=== PATIENT | female | born 1970 | race Caucasian/White ===

== ENCOUNTER 2021-10-30 04:20 | Emergency (ER) | payer MEDICARE, MEDICAID, SELFPAY ==
--- NOTE | ~2021-10-30 | CT_ITS ---
EXAMINATION: CT HEAD WITHOUT CONTRAST CLINICAL INFORMATION: Head injury COMPARISON: None. TECHNIQUE: Contiguous axial imaging was performed from the skull base to vertex without intravenous contrast. This CT examination was performed using dose optimization techniques as appropriate, variously including the following: * Automated exposure control * Adjustment of mA and/or kV according to patient size (this includes techniques or standardized protocols for targeted exams where dose is matched to indication/reason for exam; i.e. extremities or head) Use of iterative reconstruction technique DLP: 673 mGy-cm. FINDINGS: There is no evidence of acute intracranial hemorrhage or territorial infarction. No abnormal mass effect or midline shift is seen. Weinstein to white matter differentiation is well preserved. No extra-axial fluid collections are identified. No hydrocephalus. No significant volume loss. There is no abnormal attenuation within the brain parenchyma. Multiple areas of soft tissue swelling, greatest in the left frontal region. Right parieto-occipital subgaleal hematoma with overlying skin mohsen. No calvarial fracture. The mastoid air cells and visualized portions of the paranasal sinuses are well aerated. CT/CT head/brain wo con IMPRESSION: No acute intracranial pathology.
[2021-10-30 05:03] VITALS: BP 119/72; BP 125/67; PULSE 69; PULSE 72; RESP 16; TEMP 36.5; O2SAT 97; O2SAT 98; BMI 21.2
--- NOTE | 2021-10-30 05:04 | ED.HEATRA ---
HPI - Head Injury General Chief complaint: Fall Stated complaint: SLIP/FALL IN SHOWER,HEAD HASH,ON THINNERS PER EMS Time Seen by Provider: 10/30/21 04:33 History of Present Illness HPI Narrative: Patient is a 51-year-old female status post slip and fall hitting the back of her head. Has a history of coronary artery disease. Status post stent. Currently is on Brilinta. No loss of consciousness. Positive nausea after the incident. Patient from home. No neck pain. No focal weakness. No chest pain. Patient is unsure of her tetanus status. Related Data Allergies Allergy/AdvReac Type Severity Reaction Status Date / Time seafood Allergy Mild Rash Verified 10/30/21 04:34 Review of Systems Review of Systems: No coughing or congestion or upper respiratory symptoms. Yes all other systems are reviewed and are negative [facility] Past Medical History Attestation statement: The following information was validated with the patient. Physical Exam Vital Signs: Vital Signs: Last Vital Signs Temp 97.7 F 10/30/21 05:03 Pulse 69 10/30/21 05:03 Resp 18 10/30/21 05:47 BP 125/67 10/30/21 05:03 Pulse Ox 97 10/30/21 05:03 O2 Del Method 10/30/21 05:03 BMI result Body Mass Index 21.2 Appearance: Alert. Oriented X3. No acute distress. Eyes: Pupils equal, round and reactive to light. ENT: Pharynx normal. Neck: Normal inspection. Neck supple. No lymph nodes noted. No crepitus CVS: Normal heart rate and rhythm. Pulses normal. Normal S1 and S2 Respiratory: No respiratory distress. Breath sounds normal. No Wheezing. No rales Abdomen: Soft and nontender. No rigidity. No distention. good BS x4 Skin: Skin warm and dry. Normal skin color. Normal skin turgor. 4 cm laceration to the occipital area of the scalp. Positive blood. Explored to full depth down to subcutaneous tissue. Extremities: No lower extremity edema. Neurovascular intact to all extremities. No Lacerations. No Rash Neuro: Oriented X 3. No motor deficit. No sensory deficit. Moving all extermities. No slurred speech MDM - Head Injury MDM Narrative Medical decision making narrative: Patient's bleeding clean with peroxide and normal saline. A large 4 cm laceration is noted to the occipital area. There was cleaned copiously. The full depth was explored. Subsequently closed with mohsen. Bleeding was controlled. Given the history of being on Brilinta. Positive nausea. Will get CT scan of the head. No neck pain. Neurologically intact. Patient claims the fall was completely mechanical. She was trying to go to the bathroom when she slipped. Medical Records Attestation: I reviewed the patient's medical records. Lab Data Attestation: I reviewed the patient's lab results. Procedures Laceration Scalp: Site: scalp Size (cm): 4 Description: linear Depth: simple, single layer Amount of anesthesia used (mL): 5 Pre-repair: wound explored and irrigated extensively Skin layer closed with: other (6 mohsen.) Discharge Plan Discharge Clinical Impression: Head injury, Laceration of scalp Patient Disposition: Home, Self-Care Instructions: Laceration (ED), Head Injury (ED) Additional Instructions: Staple removal in 5-7 days. Referrals: [facility] [Physician] - (Staple removal in 1 week with your own doctor or in the emergency department. Head injury precautions.)
[2021-10-30] MEDS: Diphth,Pertus(ACell),Tet Adult 0.5 ML SYRINGE IM (05:13)
[2021-10-30 05:47] VITALS: RESP 18
[2021-10-30] MEDS: HYDROmorphone HCl 0.5 MG/0.5 ML SYRINGE IVPUSH (05:47)
[2021-10-30] MEDS: ondansetron HCL 4 MG/2 ML VIAL IVPUSH (05:47)
== END 2021-10-30 06:55 | disposition home or self-care (01) ==
PROVIDERS: Emergency Provider Emergency Medicine Emergency Medical Services
DX: S00.91XA Abrasion of unspecified part of head, initial encounter (principal); R51.9 Headache, unspecified; W01.10XA Fall on same level from slipping, tripping and stumbling with subsequent striking against unspecified object, initial encounter; Y93.9 Activity, unspecified; Y92.9 Unspecified place or not applicable; Y99.9 Unspecified external cause status; Z79.899 Other long term (current) drug therapy
CPT/HCPCS: 12002; 70450; 90471; 90715; 96374; 96375; 99282; 99284; J1170; J2405

== ENCOUNTER 2021-11-06 14:45 | Emergency (ER) | payer MEDICARE, MEDICAID, SELFPAY ==
[2021-11-06 15:04] VITALS: BP 135/73; PULSE 64; RESP 16; TEMP 36.7; O2SAT 98; BMI 25.4
--- NOTE | 2021-11-06 15:46 | ED.GENADULT ---
HPI - General Adult General Chief complaint: General Medical Stated complaint: Staple removal Time Seen by Provider: 11/06/21 15:34 Source: patient Mode of arrival: ambulatory Limitations: no limitations History of Present Illness HPI narrative: 51-year-old female presenting to the emergency department requesting staple removal, patient head is 6 mohsen placed her head about a week ago. Patient denies any fevers, chills, numbness or tingling. She is concerned about a dry area on her scalp that has been going on for about a week. Denies fevers or chills. Related Data Allergies Allergy/AdvReac Type Severity Reaction Status Date / Time seafood Allergy Mild Rash Verified 10/30/21 04:34 Review of Systems Review of Systems: Constitutional : No Fever, No Chills, Cardiovascular : No Chest Pain, No SOB Respiratory : No Dyspnea Gastrointestinal : No abdominal pain Musculoskeletal : No Joint Swelling Skin : No rash, No skin laceration Neuro : No Weakness, No Numbness Psych : No SI/HI Yes all other systems are reviewed and are negative [facility] Past Medical History Attestation statement: The following information was validated with the patient. Source: old records reviewed and nursing notes reviewed Physical Exam ED Vital Signs: Vital Signs - 24 hr 11/06/21 15:04 Temperature 98.0 F Pulse Rate 64 Respiratory Rate 16 Blood Pressure 135/73 Pulse Oximetry 98 Oxygen Delivery Method Room Air BMI result Body Mass Index 25.4 Vital signs stable Appearance: Alert.? Oriented X3.? No acute distress.? Head: Normocephalic, atraumatic, no step-offs or deformities + dry patch on scalp + 6 intact mohsen to head Eyes: Pupils equal, round and reactive to light.? CVS: Normal heart rate and rhythm.? Pulses normal.? Respiratory: No respiratory distress.? Breath sounds normal.? Abdomen: Soft and nontender.? Skin: Skin warm and dry.? Normal skin color.? Normal skin turgor.? Extremities: No lower extremity edema.? No calf ttp. 5/5 strength to bilateral upper and lower extremities Neuro: Oriented X 3.? No motor deficit.? No sensory deficit. CN 2-12 intact Medical Decision Making [facility] Narrative Medical decision making narrative: [id number] 51-year-old female presenting to the emergency department for suture removal and a dry area on her scalp. Physical exam with 6 intact mohsen to the occiputs. Dry area on a occiputs. No signs of abscess. Appears as though there is a dry area of skin that patient is concerned about. Advised her to follow-up with dermatology. Six mohsen were removed. Patient tolerated procedure well. Medical Records Medical records reviewed: Yes I reviewed the patient's medical records. Lab Data Lab results reviewed: Yes I reviewed the patient's lab results. Critical Care Time Critical Care Time Critical Care Time: No Discharge Plan Discharge Clinical Impression: Encounter for removal of mohsen Patient Disposition: Home, Self-Care Additional Instructions: Take your medications as prescribed. If you were prescribed antibiotics today, it is important that you take your medication to their entirety, do not skip any doses, do not finish them early. Follow-up with your primary care provider this week. Return to the emergency department with new or worsening symptoms. Such as fevers, chills, chest pain, shortness of breath, nausea, vomiting, dizziness, headache, vision changes, lethargy In case of emergency call 911 Referrals: Physician,None [Primary Care Provider] - 2 days
== END 2021-11-06 15:54 | disposition home or self-care (01) ==
PROVIDERS: Emergency Provider Emergency Medicine
DX: Z48.02 Encounter for removal of sutures (principal)
CPT/HCPCS: 99282; 99283

== ENCOUNTER 2022-02-09 15:13 | Emergency (ER) | payer MEDICARE, MEDICAID, SELFPAY ==
--- NOTE | 2022-02-09 15:15 | ECG_ITS ---
Test Reason : CHEST PAIN Blood Pressure : / mmHG Vent. Rate : 074 BPM Atrial Rate : 074 BPM P-R Int : 126 ms QRS Dur : 072 ms QT Int : 406 ms P-R-T Axes : 067 024 051 degrees QTc Int : 450 ms Normal sinus rhythm RSR' or QR pattern in V1 suggests right ventricular conduction delay Otherwise normal ECG No previous ECGs available Referred By: Generic ED Physician Electronically Signed By:CHRISTIANA BURNHAM MD
[2022-02-09 15:22] VITALS: BP 172/93; PULSE 72; RESP 18; TEMP 36.6; O2SAT 97; BMI 22.3
[2022-02-09 17:51] LABS: MANUAL DIFF FLAG NO
[2022-02-09 17:57] LABS: Basophils Absolute Auto 0.1 X10*3/uL (0.0-0.2); Basophils Percent Auto 0.8 % (0-2); Eosinophils Absolute Auto 0.1 X10*3/uL (0.0-0.4); Eosinophils Percent Auto 1.1 % (0-4); Hematocrit 40.7 % (37.0-47.0); Hemoglobin 13.4 g/dl (12.0-16.0); Imm Gran Abs Auto 0.03 X10*3/uL (0.00-0.03); Imm Gran Pct Auto 0.3 % (0.0-0.4); Lymphocytes Absolute Auto 2.6 X10*3/uL (1.2-4.9); Lymphocytes Percent Auto 27.6 % (20-40); Mean Corpuscular HGB Conc 32.9 g/dl (31.0-35.0); Mean Corpuscular Hemoglobin 28.4 pg (27.0-33.0); Mean Corpuscular Volume 86.2 fL (80.0-98.0); Mean Platelet Volume 9.6 fL (9.4-12.3); Monocytes Absolute Auto 0.8 X10*3/uL (0.1-1.2); Monocytes Percent Auto 8.1 % (2-11); Neutrophils Absolute Auto 5.9 x10*3/uL (2.0-8.3); Neutrophils Percent Auto 62.1 % (45-73); Platelet Count 335 X10*3/uL (160-400); Red Blood Count 4.72 X10*6/uL (4.20-5.50); Red Cell Distribution Width 14.4 % (11.0-16.0); White Blood Count 9.5 X10*3/uL (4.8-10.8)
[2022-02-09 18:11] LABS: Alanine Aminotransferase 31 U/L (0-31); Albumin Level 4.9 g/dL (3.5-5.0); Alkaline Phosphatase 128 U/L (39-117); Anion Gap 17 (12-20); Aspartate Amino Transferase 32 U/L (5-31); Bilirubin Direct < 0.2 mg/dL (0.0-0.5); Bilirubin Total 0.4 mg/dL (0.0-1.0); Blood Urea Nitrogen 23 mg/dL (9-16); Calcium 10.6 mg/dL (8.4-10.2); Carbon Dioxide 24 mmol/L (22-29); Chloride 105 mmol/L (96-108); Creatinine Clr Calc Pharmacy 67.7; Estimated Glomerular Filt Rate > 60; Glucose Random 106 mg/dL (60-115); Lipase 38 U/L (8-78); Potassium 4.1 mmol/L (3.3-5.1); Sodium 142 mmol/L (135-145); Total Protein 8.9 g/dL (6.5-8.0)
[2022-02-09 18:13] LABS: Troponin-I High Sensitivity 3.7 ng/L (<3.5-17.0)
== END 2022-02-09 18:08 | disposition left against medical advice (07) ==
PROVIDERS: Emergency Provider Emergency Medicine
DX: R07.9 Chest pain, unspecified (principal); F41.9 Anxiety disorder, unspecified
CPT/HCPCS: 36415; 80053; 82248; 83690; 84484; 85025; 93005; 99283

== ENCOUNTER 2022-10-25 15:20 | Emergency (ER) | payer MEDICARE, MEDICAID, SELFPAY ==
[2022-10-25 15:31] VITALS: BP 128/89; PULSE 67; RESP 18; TEMP 36.6; O2SAT 97; BMI 23.4
--- NOTE | 2022-10-25 15:31 | ED.GENADULT ---
HPI - General Adult General Chief complaint: General Medical Stated complaint: BP high Time Seen by Provider: 10/25/22 17:35 Source: patient Mode of arrival: ambulatory History of Present Illness HPI narrative: 52-year-old female with a history of hypertension and states that this is been going on for several days now and denies any primary care provider in the area and moved from [place] 2 years ago. Patient states that she does have blood pressure medication which she takes but says that her blood pressure at home has been in the 190s/100s. She reports headaches and intermittent shortness of breath. However, at this time patient reports being asymptomatic and denies any recent GI or symptoms and denies any shortness of breath or chest pain at this time. Related Data Previous Rx's Medication Instructions Recorded metoprolol succinate 100 mg 100 mg PO DAILY #30 tabs 10/25/22 tablet,extended release 24 hr ticagrelor 90 mg tablet (Brilinta) 90 mg PO BID 30 days #60 tabs 10/25/22 Allergies Allergy/AdvReac Type Severity Reaction Status Date / Time seafood Allergy Mild Rash Verified 10/25/22 15:31 Review of Systems Review of Systems: Pertinent positives and negatives as stated in HPI [facility] Past Medical History Source: nursing notes reviewed Medical History Hypertension Myocardial infarct Social History Social History Alcohol intake: never Smoked in Last 30 Days: Yes Use of substances other than those prescribed or required for medical reasons: Yes Substance Use Type: Marijuana Advance Directives: No Advance Directives Information Provided: No Patient : No Physical Exam ED Vital Signs: Vital Signs - 24 hr 10/25/22 15:31 10/25/22 17:14 10/25/22 17:28 Temperature 97.9 F 98.7 F Pulse Rate 67 64 61 Respiratory Rate 18 16 13 Blood Pressure 128/89 118/84 125/77 Pulse Oximetry 97 98 97 Oxygen Delivery Method Room Air Room Air Room Air BMI result Body Mass Index 23.4 VITAL SIGNS: Reviewed. GENERAL: Appears older than stated age, in no acute distress. HEAD: Normocephalic/atraumatic EYES: PERRLA, EOMI EARS: Ext canals without abnormality NOSE: Nares patent bilateral OROPHARYNX: no oral lesions noted, posterior pharynx clear NECK: Supple, no adenopathy LUNGS: Normal breath sounds. No adventitious sounds or accessory muscle use. SpO2<97> CARDIOVASCULAR: Regular rate and rhythm without noted murmurs, no JVD or lower extremity edema. ABDOMEN: Soft, non-tender, non-distended with bowel sounds. MUSCULOSKELETAL: No tenderness, deformities, or effusions noted on gross inspection. EXTREMITIES: No cyanosis, clubbing or edema. SKIN: Inspection of the skin reveals no rashes NEUROLOGIC: Alert and oriented x 4. Strength and sensation to light touch were grossly intact x 4. Course Course Course Narrative: This is an RME: Additional HPI, ROS, PE not included below will be deferred to primary provider. This is a 22-icda-idb-female, with a history of heart stents on Brillanta, HLD, presenting to the emergency department with complaints of chest tightness and high blood pressure readings at home x 4 days. Reports BP readings of 180-190s/100s. Reports some intermittent shortness of breath, not short of breath right now. Blood pressure 128/89, all other vital signs within. Plan: Labs, EKG, cxr Medical Decision Making Medical Decision Making MDM Narrative: 52-year-old female with history and clinical presentation, DD X: Pneumonia, ACS, costochondritis. 1848: I reviewed all investigations, patient is nonfocal so I do not have concerns regarding any intracranial abnormalities, hematologic results are without evidence to demonstrate leukocytosis or anemia, chemistries are grossly within normal limits and a troponin is undetectable in conjunction with no acute changes on EKG I do not suspect ACS. I do agree that patient's blood pressure may be elevated 1st thing in the morning due to waning medication affect. This was discussed with her at bedside, she was provided with a list primary care providers in the [facility] system as well as given an additional 2 weeks of blood pressure medication. Chest x-ray does not demonstrate a pneumonia and otherwise I am in agreement with radiology's impression. She is otherwise discharged home in stable condition. Differential Diagnosis Please see the discussion above Admission/Observation Consideration of admission/observation: Escalation of care including admission/observation considered Lab Data Please see the discussion above 10/25/22 15:56 10/25/22 15:56 Labs: Lab Results 10/25/22 10/25/22 10/25/22 Range/Units 15:56 15:56 15:56 WBC 6.9 (4.8-10.8) X10*3/uL RBC 4.62 (4.20-5.50) X10*6/uL Hgb 13.6 (12.0-16.0) g/dl Hct 40.0 (37.0-47.0) % MCV 86.6 (80.0-98.0) fL MCH 29.4 (27.0-33.0) pg MCHC 34.0 (31.0-35.0) g/dl RDW 15.0 (11.0-16.0) % Plt Count 321 (160-400) X10*3/uL MPV 10.0 (9.4-12.3) fL Immature Gran % (Auto) 0.3 (0.0-0.4) % Neut % (Auto) 64.9 (45-73) % Lymph % (Auto) 24.1 (20-40) % [place] % (Auto) 8.5 (2-11) % Eos % (Auto) 1.3 (0-4) % Baso % (Auto) 0.9 (0-2) % Lymph # (Auto) 1.7 (1.2-4.9) X10*3/uL [place] # (Auto) 0.6 (0.1-1.2) X10*3/uL Eos # (Auto) 0.1 (0.0-0.4) X10*3/uL Baso # (Auto) 0.1 (0.0-0.2) X10*3/uL Abs Immat Gran (auto) 0.02 (0.00-0.03) X10*3/uL Absolute Neuts (auto) 4.5 (2.0-8.3) x10*3/uL Absolute Nucleated RBC 0.000 (0.0-0.012) X10*3/uL Nucleated RBC % (auto) 0.0 (0.0-0.2) /100WBC Sodium 143 (135-145) mmol/L Potassium 4.1 (3.3-5.1) mmol/L Chloride 110 H (96-108) mmol/L Carbon Dioxide 22 (22-29) mmol/L Anion Gap 15 (12-20) BUN 17 H (9-16) mg/dL Creatinine 0.76 (0.5-1.4) mg/dL Estim Creat Clear Calc 76.1 Estimated GFR > 60 Random Glucose 110 (60-115) mg/dL Calcium 10.1 (8.4-10.2) mg/dL Troponin I High Sens < 2.7 (<3.5-17.0) ng/L Urine Color Urine Appearance Urine pH (5.0-9.0) Ur Specific [place] (1.005-1.025) Urine Protein (Neg-Trace) mg/dL Urine Glucose (UA) (Negative) mg/dL Urine Ketones (Negative) mg/dL Urine Blood (Negative) Urine Nitrite (Negative) Ur Leukocyte Esterase (Negative) Urine RBC (0-2) /HPF Urine WBC (0-5) /HPF Ur Squamous Epith Cells (0-2) /HPF Urine Bacteria (None Seen) Hyaline Casts (0-2) /LPF 10/25/22 Range/Units 17:16 WBC (4.8-10.8) X10*3/uL RBC (4.20-5.50) X10*6/uL Hgb (12.0-16.0) g/dl Hct (37.0-47.0) % MCV (80.0-98.0) fL MCH (27.0-33.0) pg MCHC (31.0-35.0) g/dl RDW (11.0-16.0) % Plt Count (160-400) X10*3/uL MPV (9.4-12.3) fL Immature Gran % (Auto) (0.0-0.4) % Neut % (Auto) (45-73) % Lymph % (Auto) (20-40) % [place] % (Auto) (2-11) % Eos % (Auto) (0-4) % Baso % (Auto) (0-2) % Lymph # (Auto) (1.2-4.9) X10*3/uL [place] # (Auto) (0.1-1.2) X10*3/uL Eos # (Auto) (0.0-0.4) X10*3/uL Baso # (Auto) (0.0-0.2) X10*3/uL Abs Immat Gran (auto) (0.00-0.03) X10*3/uL Absolute Neuts (auto) (2.0-8.3) x10*3/uL Absolute Nucleated RBC (0.0-0.012) X10*3/uL Nucleated RBC % (auto) (0.0-0.2) /100WBC Sodium (135-145) mmol/L Potassium (3.3-5.1) mmol/L Chloride (96-108) mmol/L Carbon Dioxide (22-29) mmol/L Anion Gap (12-20) BUN (9-16) mg/dL Creatinine (0.5-1.4) mg/dL Estim Creat Clear Calc Estimated GFR Random Glucose (60-115) mg/dL Calcium (8.4-10.2) mg/dL Troponin I High Sens (<3.5-17.0) ng/L Urine Color Yellow Urine Appearance Clear Urine pH 5.5 (5.0-9.0) Ur Specific [place] 1.015 (1.005-1.025) Urine Protein Negative (Neg-Trace) mg/dL Urine Glucose (UA) Negative (Negative) mg/dL Urine Ketones Negative (Negative) mg/dL Urine Blood Negative (Negative) Urine Nitrite Negative (Negative) Ur Leukocyte Esterase Negative (Negative) Urine RBC 0-2 (0-2) /HPF Urine WBC 0-5 (0-5) /HPF Ur Squamous Epith Cells 0-2 (0-2) /HPF Urine Bacteria None Seen (None Seen) Hyaline Casts 0-2 (0-2) /LPF Independent Interpretation I performed an independent interpretation of an: EKG Interpretation: Normal sinus rhythm, HR-62, no STEMI, TN/QRS/QTC is within normal limits. Radiology Impression Radiologist Impression: My interpretation is in agreement with radiology's impression. External Record Review External record reviewed: Outpatient record and Prior outpatient labs Chronic Conditions Patient?s care impacted by: Hypertension Discharge Plan Discharge Clinical Impression: Hypertension Patient Disposition: Home, Self-Care Instructions: DASH Eating Plan (ED), Low-Sodium Diet (ED), Hypertension (ED) Additional Instructions: 1. Resume all home medications as prescribed 2. I have sent prescriptions for your Lopressor and Brilinta that appears to have been last prescribed in August. 3. Please reach out to any of the primary care providers on the list you have been provided. Return to the ER for any worsening symptoms. Prescriptions: New metoprolol succinate 100 mg tablet extended release 24 hr 100 mg PO DAILY Qty: 30 0RF Brilinta 90 mg tablet 90 mg PO BID 30 Days Qty: 60 0RF Interventions: ED Discharge Assessment Last Done: 10/25/22 18:58 Discharge Date/Time: 10/25/22 19:03
[2022-10-25 16:43] LABS: Anion Gap 15 (12-20); Blood Urea Nitrogen 17 mg/dL (9-16); Calcium 10.1 mg/dL (8.4-10.2); Carbon Dioxide 22 mmol/L (22-29); Chloride 110 mmol/L (96-108); Creatinine Clr Calc Pharmacy 76.1; Estimated Glomerular Filt Rate > 60; Glucose Random 110 mg/dL (60-115); Potassium 4.1 mmol/L (3.3-5.1); Sodium 143 mmol/L (135-145)
[2022-10-25 17:14] VITALS: BP 118/84; PULSE 64; RESP 16; O2SAT 98
[2022-10-25 17:28] VITALS: BP 125/77; PULSE 61; RESP 13; TEMP 37.1; O2SAT 97
--- NOTE | 2022-10-25 17:30 | PC.NURSE ---
pt alert and oriented x3,vss, nsr on telemetry monitor - pt seems to be slightly bradycardic, pt states that she has a pain of an 7/10 pain in the left upper portion of her chest, lung sounds clear throughout bilaterally, heart sounds prominent without any adventitious sounds during auscultation, call palacios placed within reach, will continue to monitor.
== END 2022-10-25 19:03 | disposition home or self-care (01) ==
PROVIDERS: Physician Assistant Medical; Emergency Provider Student in an Organized Health Care Education/Training Program
DX: I10 Essential (primary) hypertension (principal); I34.0 Nonrheumatic mitral (valve) insufficiency; Z20.822 Contact with and (suspected) exposure to COVID-19
CPT/HCPCS: 36415; 71046; 80048; 81001; 84484; 85025; 87635; 93005; 99283; 99284

== ENCOUNTER 2023-04-30 12:37 | Outpatient (AMB) | payer MEDICARE, MEDICAID, SELFPAY ==
[2023-04-30 12:52] VITALS: BP 124/72; PULSE 57; BMI 25.3
--- NOTE | 2023-04-30 12:52 | MHC.OFFVIS ---
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, DEMARCUSB Intake Note: New patient history CAD 4 stent done in [place] 02/08 c/o daily chest pain (like a weight on her chest) Contact Center Assistant Required: No Accompanied by: Self / Same As Patient Allergies seafood Allergy (Mild, Verified 04/30/23 13:21) Rash Medication List - Last Reconciled 04/30/23 by Beatriz Buckner NP atorvastatin 80 mg PO BEDTIME ezetimibe 10 mg PO DAILY hydroxyzine HCl 50 mg PO TID metoprolol succinate ER 100 mg PO DAILY omeprazole 20 mg PO DAILY sertraline 100 mg PO BID ticagrelor (Brilinta) 60 mg PO BID HPI HPI Comments History of Present Illness Details 53-year-old female presents today for a new patient visit. She has a history of hypertension, a myocardial infarct, and migraines. She had the infarct at [facility] in 2019. She states she had three stents placed (records have been requested). She moved here to [place] and has not seen a cost accounting analyst since. She reports she is doing well overall and is compliant with medications. She does endorse chest pressure at rest and with exertion and shortness of breath with exertion that has been occurring for about a year. She denies swelling, palpitations, dizziness, or bleeding concerns. She smokes marijuana and has greatly reduced her cigarette smoking to a very rare occasion and is trying to avoid them. She does not drink alcohol. No known family history of cardiac problems. She tries to walk when weather permits and avoids salt but does not adhere the DASH diet. [facility] Medical History (Updated 04/30/23 @ 13:41 by Beatriz Buckner NP) Hypertension Surgical History (Updated 04/30/23 @ 13:25 by Beatriz Buckner NP) H/O wrist surgery Social History (Updated 04/30/23 @ 13:24 by Beatriz Buckner NP) Alcohol intake: never Patient Tobacco Use Status: Current someday Tobacco user Tobacco use type: Cigarette Substance Use Type: Marijuana Review of Systems Const Denies chills, Denies daytime sleepiness, Denies fatigue, Denies fever(s), Denies frequent falls, Denies poor appetite, Denies snoring, Denies stops breathing during sleep, Denies weakness, Denies weight gain and Denies weight loss Eyes Denies loss of vision ENT Denies dizziness and Denies hearing loss Card Denies chest pain, Denies claudication, Denies leg edema, Denies lightheadedness, Denies palpitations, Denies dyspnea, Denies dyspnea on exertion and Denies orthopnea Resp Denies cough, Denies excessive phlegm production, Denies dyspnea, Denies dyspnea on exertion, Denies snoring and Denies wheezing GI Denies abdominal pain, Denies hematochezia, Denies change in bowel habits, Denies nausea and Denies vomiting Denies urinary frequency and Denies dysuria Musc Denies arthralgias, Denies muscle weakness, Denies numbness and Denies other (frequent falls) Skin/Breast Denies nail changes and Denies rash Neuro Denies Abnormal speech present, Denies dizziness, Denies frequent falls, Denies loss of vision, Denies memory loss, Denies numbness and Denies weakness Psych Denies depression and Denies memory loss Endo Denies fatigue and Denies palpitations Hugo/Lymph Reports easy bruising and Reports other (anemia) Aller/Immun Denies wheezing Physical Exam Vital Signs: Last Vital Signs Pulse 57 04/30/23 12:52 BP 124/72 04/30/23 12:52 BMI result Body Mass Index 25.3 Const General: healthy appearing and no acute distress Orientation/consciousness: patient oriented x3 HEENT Head: Yes normal to inspection Eyes General: appearance normal, both eyes and all related structures Neck Neck: Yes normal visual inspection Chest Chest palpation & inspection: normal inspection of the chest Resp Effort & Inspection: normal respiratory effort Auscultation: clear to auscultation bilaterally Cardio Jugular venous distension: no JVD Palpation: normal PMI Rate: regular rate Rhythm: regular rhythm Heart sounds: S1 normal heart sound present, S2 normal heart sound present, no click, no gallops, no murmurs and no rubs GI Inspection: Yes normal to inspection Palpation (GI): Soft to palpation Skin General skin exam: no rashes or lesions noted Neuro General: patient oriented x3 Speech: No Abnormal speech present Extrem General: Yes normal to inspection Psych Appearance: grossly normal Office Procedures EKG Details: EKG today. Rate 57 bpm. Sinus Bradycardia. Otherwise normal. QTc 424ms. WA 140ms. [id number], Complete Assessment & Plan Assessment & Plan (1) H/O heart artery stent: Code(s): Z95.5 - Presence of coronary angioplasty implant and graft (2) Hypertension: Code(s): I10 - Essential (primary) hypertension (3) History of HI (myocardial infarction): Comment: 02/2020 in [facility] Code(s): I25.2 - Old myocardial infarction Plan Advised and discussed complete smoking cessation, avoidance of alcohol, and heart healthy diet. ED care if needed for symptoms. Monitor blood pressures periodically. Echocardiogram to assess heart function. Stress test with nuclear images to assess chest pressure / ischemia. Request for records from her last cost accounting analyst / [employer] done today. Will have her return after testing to meet with Dr. Ross or sooner if needed. Orders: Orders CA echo transthoracic complete Today I10 - Essential (primary) hypertension, I25.2 - Old myocardial infarction, Z95.5 - Presence of coronary angioplasty implant and graft CA stress test Today I10 - Essential (primary) hypertension, I25.2 - Old myocardial infarction, Z95.5 - Presence of coronary angioplasty implant and graft NM cardiolite stress test Today I10 - Essential (primary) hypertension, I25.2 - Old myocardial infarction, Z95.5 - Presence of coronary angioplasty implant and graft Coding Level of Care Code New Pt Level 4 (01603) Diagnoses H/O heart artery stent Z95.5 Hypertension I10 History of HI (myocardial infarction) I25.2 CPT Codes EKG - CPT: 06251-[id number], Complete ([id number])
== END 2023-04-30 13:48 | disposition home or self-care (01) ==
PROVIDERS: Visit Provider Internal Medicine Cardiovascular Disease
DX: Z95.5 Presence of coronary angioplasty implant and graft (principal); I10 Essential (primary) hypertension; I25.2 Old myocardial infarction
CPT/HCPCS: 93010; 99204

== ENCOUNTER → 2023-04-30 12:37 | Outpatient (BNVA) | payer MEDICARE, MEDICAID, SELFPAY | PROVIDERS: Visit Provider Internal Medicine Cardiovascular Disease | DX: I25.2 Old myocardial infarction (principal); I10 Essential (primary) hypertension; Z95.5 Presence of coronary angioplasty implant and graft | CPT/HCPCS: 93005; 99202 ==

== ENCOUNTER → 2023-05-16 13:43 | Outpatient (REF) | payer MEDICARE, MEDICAID, SELFPAY ==
--- NOTE | 2023-05-16 13:46 | CA_ITS ---
Transthoracic Echocardiogram Patient (Last, First, Middle): Alexus Marino, Gender: Female Date of : 1970 Age: 53 Procedure Date: 05/16/2023 Procedure Type: Transthoracic Echocardiogram Location: OP Height: 162.56 cm Weight: 67.13 kg BSA: 1.72 m2 Heart Rate: 60 bpm BP: 110 / 70 mmHg Depalletizer Operator: LEVI Referring MD: Beatriz Buckner NP District Medical Examiner: Moo Ross MD Symptoms: Z95.5 - Presence of coronary angioplasty implant and graft Study Quality: Adequate ECG Rhythm: Sinus Conclusions: - 1. Normal LV ejection fraction of 60-65% 2. Mitral annular calcification with [id number] mitral regurgitation 3. Normal RV systolic pressure 4. No gross pericardial effusion Findings Left Ventricle Normal left ventricular size, thickness, and systolic function. The visually estimated ejection fraction is between 60-65%. Spectral Doppler is indicative of a normal filling pattern. Wall Motion Rest Echo Findings The basal inferior and basal inferoseptal segments are hypokinetic. All other scored wall segments showed normal motion. Right Ventricle Normal right ventricular cavity size and systolic function. Atria Severe biatrial enlargement. Interatrial shunt cannot be excluded. Aortic Valve Normal aortic valve structure and function. There is no aortic valve stenosis. There is no aortic valve regurgitation. Mitral Valve There is mild anterior and moderate posterior mitral leaflet thickening. There is moderate mitral annular calcification. There is mild to moderate mitral valve regurgitation. There is no mitral valve stenosis. Pulmonic Valve The pulmonic valve is likely normal. Tricuspid Valve Normal tricuspid valve structure. There is trace tricuspid valve regurgitation. The right ventricular systolic pressure is normal. The right ventricular systolic pressure is 21 mmHg. Normal right atrial pressure. There is no evidence of pulmonary hypertension. Great Vessels All visible segments of the aorta are normal in size. The pulmonary artery was not well visualized. Venous The inferior vena cava is normal in size and collapses greater than 50% with inspiration. Pericardium/Pleural There is no evidence of pericardial effusion. Prior Study Comparison No prior study available for comparison. Measurements 2D Linear Measurements IVSd: 0.88 0.6-0.9/0.6-1.0 cm LVIDd: 4.79 3.9-5.3/4.2-5.9 cm LVIDd Index: 2.78 2.4-3.2/2.2-3.1 cm/m2 LVIDs: 2.77 2.0-3.6 cm LVPWd: 0.75 0.7-1.1 cm LA Diam: 3.70 2.7-3.8/3.0-4.0 cm LAIDs Index: 2.15 1.5-2.3 cm/m2 LV Mass: 160.51 67-162/88-224 g LV Mass Index: 93.32 43-95/49-115 g/m2 LVOT Diam: 1.90 3.0+(-)1.3 cm 2D Systolic Function EF 4C: 66.30 >55% EF 2C: 57.30 >55% EF BiP: 60.70 >55% Mitral Valve MV Pk E: 1.35 MV PK A: 0.89 MV Decel Time: 257.00 E/A: 1.50 E'Lateral: 12.00 E'Medial: 7.07 E/E' Med: 19.10 E/E' Lat: 11.30 PHT: 75.00 MVA PHT: 2.93 Decel Lynn: 5.24 MR Vol - PW Dopp: 21.60 MR VTI: 1.80 MR ERO: 12.00 MR Alias Yadiel: 0.39 MR RAD: 0.50 Aortic Valve AoV Pk Yadiel: 1.36 AoV Mn Yadiel: 0.94 AoV VTI: 0.29 AoV Pk Grad: 7.00 Aov Mn Grad: 4.00 EUSEBIA Cont.VTI: 1.89 LVOT LVOT Pk Yadiel: 0.98 LVOT Mn Yadiel: 0.63 LVOT VTI: 0.19 LVOT Pk Grad: 4.00 LVOT Mn Grad: 2.00 LVOT Diam: 1.90 LVOT Area: 2.84 Diastolic Function MV Pk E: 1.35 MV Pk A: 0.89 E/A: 1.50 E'Medial: 7.07 E/E' Med: 19.10 E' Laterial: 12.00 E/E' Lat: 11.30 Right Ventricle TAPSE (mm): 24.80 TVS' Yadiel: 10.30 Tricuspid Valve TR Pk Yadiel: 2.11 TR Pk Grad: 18.00 RA Press: 3.00 RVSP: 21.00 Great Vessels Aorta Sinus of Valsalva: 3.30 2.0-3.5 cm Ao Asc: 3.10 2.1-3.4 cm Pulmonary Valve PV Pk Yadiel: 0.87 Peak PV Grad: 3.00 Updated in Other Vendor System with Status of Final Moo Ross MD electronically signed on 05/17/2023 1:21:37 PM with status of Final
== END ==
LOC: HO.CARD 13:43
PROVIDERS: Visit Provider Nurse Practitioner
DX: I25.2 Old myocardial infarction (principal); I10 Essential (primary) hypertension; Z95.5 Presence of coronary angioplasty implant and graft
CPT/HCPCS: 93306

== ENCOUNTER → 2023-05-16 13:46 | Outpatient (BNV) | payer MEDICARE, MEDICAID, SELFPAY | PROVIDERS: Visit Provider Internal Medicine Cardiovascular Disease | DX: I34.0 Nonrheumatic mitral (valve) insufficiency (principal) | CPT/HCPCS: 93306 ==

== ENCOUNTER → 2023-07-04 09:35 | Outpatient (REF) | payer MEDICARE, MEDICAID, SELFPAY ==
--- NOTE | ~2023-07-04 | NM_ITS ---
Lexiscan Myocardial perfusion study Indication: Chest pain, assess for coronary disease ischemia Technique: The patient was brought in for a Lexiscan perfusion study on 07/04/2023 and was injected 0.4 mg of Lexiscan intravenously. Within a minute of this injection 25 mCi of sestamibi was given intravenously. Images were obtained using the SPECT gamma camera interlaced with the gating device. Images were obtained in supine position. Resting perfusion study was performed on 07/12/2023. Patient was administered 25 mCi of sestamibi intravenously at rest. Images were then obtained in supine position. Images were processed with the software and compared side to side in short axis, horizontal long axis and vertical long axis views. Total DLP 43mGy-cm. Findings: Raw acquisition reviewed. The stress perfusion study showed diminished tracer uptake in the apical anterior wall and apex. This is seen in uncorrected as well as CT attenuation corrected images. The gated study shows normal LV systolic function with calculated LVEF of 66%. LV cavity is normal in size. The gated study shows reduced thickening contractility of the apex. Resting study shows diminished tracer uptake at the apex.. Gating at rest reveals reduced thickening and contractility at apex with ejection fraction of 60%. The findings are consistent with mixed perfusion defect at the apex but shows fixed/reversible components. NM/NM cardiolite stress test Impression: 1. Myocardial perfusion imaging study shows mixed infarct/ischemia pattern at the apex. 2. Gated LVEF is 66% during stress and 60% during rest. 3. Transient ischemic dilatation not present. EKG component of the test reported separately.
--- NOTE | 2023-07-04 09:37 | CA_ITS ---
Acquisition Time: 2023-07-04 09:54:41 Total Exercise Time: 00:01:38 Test Indications: CP Medications: SEE H Protocol: KIARRA Max HR: 107 BPM 64% of Pred: 165 BPM Max BP: 124/076 mmHG Max Work Load: 3.9 METS Exercise stress test exercise 1 min 38 sec of Kiarra protocol achieivng 68% MPHR, terminated due to safety. Patient assisted to chair. Test changed to pharmacological stress test with Lexiscan. Pharmacological stress test with Lexiscan injection, without anginal symptoms, with isolated PVC, with normotenisve response to injecirton, with nondiagnoisitic EKGs. Aminophylline 75mg IVP given to reverse Lexiscan. Nuclear images pending. Test reviewed with Dr. Ross Referred By: Beatriz Buckner Overread By: Beatriz Buckner
== END ==
LOC: HO.CARD 09:35
PROVIDERS: Visit Provider Nurse Practitioner
DX: I10 Essential (primary) hypertension (principal); I25.2 Old myocardial infarction; Z95.5 Presence of coronary angioplasty implant and graft
CPT/HCPCS: 78452; 93017; A9500; J0280; J2785

== ENCOUNTER → 2023-07-04 09:37 | Outpatient (BNV) | payer MEDICARE, MEDICAID, SELFPAY | PROVIDERS: Visit Provider Nurse Practitioner | DX: R07.9 Chest pain, unspecified (principal) | CPT/HCPCS: 78452; 93016; 93018 ==

== ENCOUNTER 2023-07-09 15:24 | Outpatient (REF) | payer MEDICARE, MEDICAID, SELFPAY ==
--- NOTE | ~2023-07-09 | MM_ITS ---
EXAMINATION: MM SCREENING DIGITAL BREAST TOMOSYNTHESIS, BILATERAL CLINICAL INFORMATION: Screening. Asymptomatic. COMPARISON: Mammography: No prior mammograms for comparison. TECHNIQUE: Digital breast tomosynthesis is performed in both the craniocaudal and mediolateral oblique views along with computer-aided detection (CAD). Synthesized 2D images are generated from the tomosynthesis. FINDINGS: The breasts are heterogeneously dense, which may obscure small masses (ACR BI-RADS breast composition Category c). There are no significant masses, abnormal calcifications, or other abnormalities. MM/MM tomosynthesis screening BI IMPRESSION: No mammographic evidence of malignancy. ASSESSMENT: BI-RADS BI-RADS 1 - Negative RECOMMENDATION: Routine annual mammography screening. 1 year F/U This examination should not preclude the clinical evaluation of a suspicious palpable abnormality. This patient's information was entered into a reminder system with a target due date for their next mammogram.
== END 2023-07-09 15:25 | disposition home or self-care (01) ==
LOC: HO.MAMMO 15:24
PROVIDERS: Visit Provider Emergency Medicine
DX: Z12.31 Encounter for screening mammogram for malignant neoplasm of breast (principal)
CPT/HCPCS: 77063; 77067

== ENCOUNTER → 2023-07-09 16:15 | Outpatient (BNV) | payer MEDICARE, MEDICAID, SELFPAY | PROVIDERS: Visit Provider Radiology Diagnostic Radiology | DX: Z12.31 Encounter for screening mammogram for malignant neoplasm of breast (principal) | CPT/HCPCS: 77063; 77067 ==

== ENCOUNTER 2023-07-16 14:28 | Outpatient (AMB) | payer MEDICARE, MEDICAID, SELFPAY ==
[2023-07-16 14:29] VITALS: BP 110/72; PULSE 60; BMI 26.4
--- NOTE | 2023-07-16 14:29 | MHC.OFFVIS ---
Intake Vital Signs 07/16/23 14:29 Height 5 ft 5 in Weight 158 lb 11.725 oz BMI 26.4 BP 110/72 Blood Pressure Location Lt brachial Position Sitting Pulse 60 Intake Visit Reasons: f/up mibi/ echo AC Intake Note: Follow-up after stress and echo c/o presser in center of chest atimes [employer] Required: No Allergies seafood Allergy (Mild, Verified 04/30/23 13:21) Rash Medication List - Last Reconciled 07/16/23 by Moo Ross MD atorvastatin 80 mg PO BEDTIME ezetimibe 10 mg PO DAILY hydroxyzine HCl 50 mg PO TID metoprolol succinate ER 100 mg PO DAILY omeprazole 20 mg PO DAILY sertraline 100 mg PO BID ticagrelor (Brilinta) 60 mg PO BID HPI HPI Comments History of Present Illness Details Alexus comes for follow-up after recent testing. Patient is a very vague historian despite asking direct questions. She continues to have chest discomfort although she says the chest discomfort is not similar to her pain with myocardial infarction many years ago. However she continues to have chest discomfort she underwent a myocardial perfusion imaging which shows a small area of apical infarction with ischemia pattern. Her symptoms are mostly at rest. Can be under stressful situations. She is taking all her medications. She still is on dual antiplatelet therapy, with last stenting done more than 3 years ago. She takes high-intensity statin as well as ezetimibe therapy. She has no symptoms of palpitations, heart failure. Unfortunately she intermittently still smokes. [facility] Medical History CAD (coronary artery disease) Hypertension Surgical History H/O wrist surgery Social History Alcohol intake: never Patient Tobacco Use Status: Current someday Tobacco user Tobacco use type: Cigarette Substance Use Type: Marijuana Review of Systems Const Denies chills, Denies fatigue, Denies fever(s), Denies frequent falls, Denies weakness, Denies weight gain and Denies weight loss ENT Denies dizziness Card Denies chest pain, Denies leg edema, Denies lightheadedness, Denies palpitations, Denies dyspnea, Denies dyspnea on exertion, Denies orthopnea and Denies other (loss of consciousness) Resp Denies cough, Denies dyspnea and Denies dyspnea on exertion GI Denies hematochezia and Denies change in stool character Musc Denies abnormal gait, Denies muscle weakness, Denies numbness, Denies radiating pain into limb and Denies tingling Neuro Denies Abnormal speech present, Denies abnormal gait, Denies dizziness, Denies frequent falls, Denies numbness, Denies tingling and Denies weakness Endo Denies fatigue and Denies palpitations Physical Exam Vital Signs: Last Vital Signs Pulse 60 07/16/23 14:29 BP 110/72 07/16/23 14:29 BMI result Body Mass Index 26.4 Const General: healthy appearing and no acute distress Orientation/consciousness: patient oriented x3 HEENT Head: Yes normal to inspection Eyes General: appearance normal, both eyes and all related structures Neck Neck: Yes normal visual inspection Chest Chest palpation & inspection: normal inspection of the chest Resp Effort & Inspection: normal respiratory effort Auscultation: clear to auscultation bilaterally Cardio Jugular venous distension: no JVD Palpation: normal PMI Rate: regular rate Rhythm: regular rhythm Heart sounds: S1 normal heart sound present, S2 normal heart sound present, no click, no gallops, no murmurs and no rubs GI Inspection: Yes normal to inspection Palpation (GI): Soft to palpation Skin General skin exam: no rashes or lesions noted Neuro General: patient oriented x3 Speech: No Abnormal speech present Extrem General: Yes normal to inspection Psych Appearance: grossly normal Assessment & Plan Assessment & Plan (1) CAD (coronary artery disease): Code(s): I25.10 - Atherosclerotic heart disease of [place] coronary artery without angina pectoris Plan: Extensive CAD in middle-aged woman consistent with premature atherosclerosis with multiple risk factors with stenting in multiple coronary arteries at different times with very atypical chest discomfort symptoms with stress test suggestive of possible small area of mixed ischemia and infarction. Her symptoms are very atypical the nuclear stress test is low risk. At this point time suggest can start therapy with isosorbide 30 mg daily to see if this will improve her chest pain syndrome although likelihood that her chest pain is related to myocardial ischemia is low. This is an empiric therapy. This was discussed with her. Continue metoprolol therapy. Complete smoking cessation was advised. I do not see any indication for prolonged dual antiplatelet therapy and would switch her to low-dose aspirin therapy. Continue aggressive blood pressure control. Goal blood pressure less than 130/84. Advised to monitor blood pressure at home maintain a log. Continue high-intensity statin therapy with ezetimibe therapy with target goal LDL closer to 50 mg/dL. Advised lipid panel near future. Will follow up in the clinic in 3 months time, sooner p.r.n.. Thank you for allowing me to partake in her care Orders: Orders Lipid Panel 07/16/23 I25.10 - Atherosclerotic heart disease of [place] coronary artery without angina pectoris Medications: New isosorbide mononitrate ER 30 mg PO DAILY 30 tabs 5RF aspirin (Ecotrin Low Strength) 81 mg PO DAILY 30 tabs 5RF Coding Level of Care Code Est Pt Level 4 (11418) Diagnoses CAD (coronary artery disease) I25.10
== END 2023-07-16 15:22 | disposition home or self-care (01) ==
PROVIDERS: Visit Provider Internal Medicine Cardiovascular Disease
DX: I25.10 Atherosclerotic heart disease of native coronary artery without angina pectoris (principal)
CPT/HCPCS: 99214

== ENCOUNTER → 2023-07-16 14:28 | Outpatient (BNVA) | payer MEDICARE, MEDICAID, SELFPAY | PROVIDERS: Visit Provider Internal Medicine Cardiovascular Disease | DX: I25.10 Atherosclerotic heart disease of native coronary artery without angina pectoris (principal) | CPT/HCPCS: 99212 ==

== ENCOUNTER 2024-07-14 11:21 | Outpatient (REF) | payer MEDICARE, MEDICAID, SELFPAY ==
[2024-07-14 13:22] LABS: MANUAL DIFF FLAG NO
[2024-07-14 13:32] LABS: Basophils Absolute Auto 0.1 X10*3/uL (0.0-0.2); Eosinophils Absolute Auto 0.2 X10*3/uL (0.0-0.4); Eosinophils Percent Auto 2.1 % (0-4); Hematocrit 39.3 % (37.0-47.0); Hemoglobin 13.3 g/dl (12.0-16.0); Imm Gran Abs Auto 0.02 X10*3/uL (0.00-0.03); Imm Gran Pct Auto 0.2 % (0.0-0.4); Lymphocytes Absolute Auto 2.4 X10*3/uL (1.2-4.9); Lymphocytes Percent Auto 28.5 % (20-40); Mean Corpuscular HGB Conc 33.8 g/dl (31.0-35.0); Mean Corpuscular Hemoglobin 30.3 pg (27.0-33.0); Mean Corpuscular Volume 89.5 fL (80.0-98.0); Monocytes Absolute Auto 0.8 X10*3/uL (0.1-1.2); Monocytes Percent Auto 9.3 % (2-11); Neutrophils Absolute Auto 4.9 x10*3/uL (2.0-8.3); Neutrophils Percent Auto 58.9 % (45-73); Platelet Count 275 X10*3/uL (160-400); Red Blood Count 4.39 X10*6/uL (4.20-5.50); Red Cell Distribution Width 13.9 % (11.0-16.0); White Blood Count 8.2 X10*3/uL (4.8-10.8)
[2024-07-14 13:47] LABS: Estimated Average Glucose 128 mg/dL; Hemoglobin A1C 148.4861 umol/L; Hemoglobin A1c % 6.1 % (<6.0)
[2024-07-14 14:13] LABS: HIV AB/AG Nonreactive (Nonreactive); HIV Num 1 0.06 S/CO (0.00-0.99)
[2024-07-14 14:50] LABS: Cholesterol 171 mg/dL (<200); HDL Cholesterol 58 mg/dL (>40); LDL Cholesterol Calculated 90 mg/dL (<100); Triglycerides 115 mg/dL (<150)
[2024-07-14 14:59] LABS: Alanine Aminotransferase 22 U/L (0-31); Albumin Level 4.4 g/dL (3.5-5.0); Alkaline Phosphatase 109 U/L (39-117); Anion Gap 12 (12-20); Aspartate Amino Transferase 25 U/L (5-31); Bilirubin Total 0.2 mg/dL (0.0-1.0); Blood Urea Nitrogen 12 mg/dL (9-16); Calcium 9.8 mg/dL (8.4-10.2); Carbon Dioxide 23 mmol/L (22-29); Chloride 111 mmol/L (96-108); Cholesterol 176 mg/dL (<200); Estimated Glomerular Filt Rate > 60; Glucose Random 102 mg/dL (60-115); HDL Cholesterol 58 mg/dL (>40); LDL Cholesterol Calculated 96 mg/dL (<100); Potassium 4.3 mmol/L (3.3-5.1); Sodium 142 mmol/L (135-145); Triglycerides 114 mg/dL (<150)
[2024-07-14 15:09] LABS: TSH reflex Free T4 2.58 uIU/mL (0.32-4.0)
[2024-07-14 15:16] LABS: Troponin-I High Sensitivity < 2.7 ng/L (<3.5-17.0)
[2024-07-14 16:57] LABS: Reflex LDLD? No
[2024-07-15 12:59] LABS: HCV Log PCR <1.18 NOT DETECTED Log IU/mL (NOT DETECTED); HepC Viral Load <15 NOT DETECTED IU/mL (NOT DETECTED)
== END 2024-07-14 11:22 | disposition home or self-care (01) ==
LOC: HO.HHCL 11:21
PROVIDERS: Internal Medicine; Internal Medicine Cardiovascular Disease; Visit Provider General Practice
DX: Z00.00 Encounter for general adult medical examination without abnormal findings (principal); I25.118 Atherosclerotic heart disease of native coronary artery with other forms of angina pectoris; I10 Essential (primary) hypertension; R00.2 Palpitations; Z79.899 Other long term (current) drug therapy
CPT/HCPCS: 36415; 80053; 80061; 83036; 84443; 84484; 85025; 87389; 87522

== ENCOUNTER 2024-11-23 13:35 | Outpatient (AMB) | payer MEDICARE, MEDICAID, SELFPAY ==
[2024-11-23 13:38] VITALS: BP 120/74; BMI 24.2
--- NOTE | 2024-11-23 13:38 | MHC.OFFVIS ---
Vital Signs 11/23/24 13:38 Height 5 ft 5 in Weight 145 lb 8.081 oz BMI 24.2 BP 120/74 Blood Pressure Location Lt brachial Position Sitting Intake Visit Reasons: overdue f/up Intake Note: Overdue follow-up with ekg concern about low heart rate at night Studio Artist Required: No Allergies seafood Allergy (Mild, Verified 04/30/23 13:21) Rash Medication List - Last Reconciled 11/23/24 by Moo Ross MD aspirin 81 mg PO DAILY atorvastatin 80 mg PO BEDTIME ezetimibe 10 mg PO DAILY hydroxyzine HCl 50 mg PO TID metoprolol succinate ER 100 mg PO DAILY omeprazole 20 mg PO DAILY sertraline 100 mg PO BID HPI Comments Details: Alexus comes for follow-up after a long gap. She now has been taking all her medications. She says she has been taking her atorvastatin and ezetimibe ever since her heart attack in his last LDL in June was at 90. She continues to smoke but has cut down significantly smokes about 2-3 cigarettes a day. Takes all her medications. She says she can walk for miles and has no symptoms. However recently she has cut down her walking due to depression. She has not had any clear exertional chest pain. No shortness of breath, orthopnea, PND. She is worried about her nocturnal heart rate which goes into the low 50s. During the daytime her heart rates at rest is in the low 60s. She has no lightheadedness or syncope [facility] Medical History CAD (coronary artery disease) Hypertension Surgical History (Updated 07/17/23 @ 15:50 by Beatriz Buckner NP) S/P coronary artery stent placement S/P coronary artery stent placement H/O wrist surgery Social History Alcohol intake: never Patient Tobacco Use Status: Current someday Tobacco user Tobacco use type: Cigarette Substance Use Type: Marijuana Review of Systems Const Denies chills, Denies fatigue, Denies fever(s), Denies frequent falls, Denies weakness, Denies weight gain and Denies weight loss ENT Denies dizziness Card Denies chest pain, Denies leg edema, Denies lightheadedness, Denies palpitations, Denies dyspnea, Denies dyspnea on exertion, Denies orthopnea and Denies other (loss of consciousness) Resp Denies cough, Denies dyspnea and Denies dyspnea on exertion GI Denies hematochezia and Denies change in stool character Musc Denies abnormal gait, Denies muscle weakness, Denies numbness, Denies radiating pain into limb and Denies tingling Neuro Denies Abnormal speech present, Denies abnormal gait, Denies dizziness, Denies frequent falls, Denies numbness, Denies tingling and Denies weakness Endo Denies fatigue and Denies palpitations Physical Exam Vital Signs: Last Vital Signs BP 120/74 11/23/24 13:38 BMI result Body Mass Index 24.2 Const General: healthy appearing and no acute distress Orientation/consciousness: patient oriented x3 HEENT Head: Yes normal to inspection Eyes General: appearance normal, both eyes and all related structures Neck Neck: Yes normal visual inspection Chest Chest palpation & inspection: normal inspection of the chest Resp Effort & Inspection: normal respiratory effort Auscultation: clear to auscultation bilaterally Cardio Jugular venous distension: no JVD Palpation: normal PMI Rate: regular rate Rhythm: regular rhythm Heart sounds: S1 normal heart sound present, S2 normal heart sound present, no click, no gallops, no murmurs and no rubs GI Inspection: Yes normal to inspection Palpation (GI): Soft to palpation Skin General skin exam: no rashes or lesions noted Neuro General: patient oriented x3 Speech: No Abnormal speech present Extrem General: Yes normal to inspection Psych Appearance: grossly normal Office Procedures EKG Details: EKG shows sinus bradycardia at 57 beats per minute. [id number], Complete Assessment & Plan Assessment & Plan (1) CAD (coronary artery disease): Code(s): I25.10 - Atherosclerotic heart disease of [place] coronary artery without angina pectoris Category: Medical Plan: CAD with multivessel PCI, 1st in January 2020 for acute coronary syndrome subsequently February she had recurrent chest pain underwent stenting of the OM branch as well as the LAD. She has not had current symptoms of angina at all. Continue low-dose aspirin therapy for life. Continue atorvastatin ezetimibe but LDL is not well optimized and therefore will add bempedoic acid to her regimen to target goal LDL closer to 55 mg/dL. If this is not adequately control may consider changing to PCSK9 inhibitor therapy. Continue aggressive blood pressure control, see below. Strongly recommend to stop smoking. (2) Hypertension: Code(s): I10 - Essential (primary) hypertension Category: Medical Plan: Hypertension which is currently well optimized with metoprolol therapy. The only medication she is currently taking. Discussed with her that this can lower heart rate although lower heart rate during sleep compared to daytime is normal and she was relieved. Continue aggressive blood pressure control. Low-salt diet was discussed. Target goal blood pressure less than 130/80. Will follow up in the clinic in 1 year's time, sooner p.r.n.. Thank you for allowing me to partake in her care Orders: Orders Lipid Panel 3 Months I25.10 - Atherosclerotic heart disease of [place] coronary artery without angina pectoris Medications: New bempedoic acid 180 mg PO DAILY 30 tabs 5RF I25.10 - Atherosclerotic heart disease of [place] coronary artery without angina pectoris Coding Level of Care Code Est Pt Level 4 (51175) Complex EM visit Add On G2211 Diagnoses CAD (coronary artery disease) I25.10 Hypertension I10 CPT Codes EKG - CPT: 32126-[id number], Complete ([id number])
--- OUTSIDE RECORDS SUMMARY | 2024-11-23 13:48 | XMS_ITS | Encounter Summary ---
Author Organization [employer] Address [address] [place] [address] Care Team Providers Care Sterile Tech Name Role Phone Eda Hager MD Primary Care Provide r Reason for Visit * Reason Comments Med Refill Encounter Details Date Type Department Care Team ([facility] st Contact Info) Description 05/14/2023 Refill [facility] [address] [place] [address] [phone] Cb Spencer MD [address] [place] [id number] Social History Tobacco Use Types Packs/Day Years Used Date Smoking Tobacco: Every Day Cigarettes Passive Smoke Exposure: Current Smokeless Tobacco: Never Comments Unknown Sex and Gender Information Value Date Recorded Sex Assigned at Female 07/10/2022 10:48 AM EDT Legal Sex Female 10:46 AM EDT Gender Identity Female 07/10/2022 10:48 AM EDT Sexual Orientation Don't know 07/10/2022 10 :48 AM EDT documented as of this encounter Plan of Treatment Not on file documented as of this encounter Visit Diagnoses Not on filedocumented in this encounter Care Teams Sterile Tech Relationship Specialty Start Date End Date Eda Hager MD [address] [place] [address] [phone] PCP - General Internal Medicine 10/29/23 documented as of this encounter
== END 2024-11-23 14:04 | disposition home or self-care (01) ==
LOC: HO.HCS 13:36
PROVIDERS: PCP General Practice; Visit Provider Internal Medicine Cardiovascular Disease
DX: I25.10 Atherosclerotic heart disease of native coronary artery without angina pectoris (principal); I10 Essential (primary) hypertension
CPT/HCPCS: 93010; 99214; G2211

== ENCOUNTER → 2024-11-23 13:35 | Outpatient (BNVA) | payer MEDICARE, MEDICAID, SELFPAY | PROVIDERS: PCP General Practice; Visit Provider Internal Medicine Cardiovascular Disease | DX: I25.10 Atherosclerotic heart disease of native coronary artery without angina pectoris (principal); I10 Essential (primary) hypertension; R00.1 Bradycardia, unspecified | CPT/HCPCS: 93005; 99212 ==